=== PATIENT | female | born 1995 | race Caucasian/White ===

== ENCOUNTER 2019-02-24 00:07 | Emergency (ER) | payer OTHER ==
[~2019-02-24] VITALS: Ht 147.3 cm; Wt 54.5 kg
[2019-02-24] MEDS ORDERED: ALPR0.5T8 PO (00:18)
[2019-02-24] MEDS ORDERED: POVIDONE-IODINE 10% 15 ML SOLUTION UD TP ONE (04:15)
[2019-02-24] MEDS ORDERED: LIDOCAINE 1% 10 ML VIAL INJ ONE (04:15)
[2019-02-24] MEDS ORDERED: BACITRACIN 0.9 GM PACKET OINTMENT TP ONE (04:15)
[2019-02-24 05:30] VITALS: BP 129/95
[2019-02-24] MEDS ORDERED: PERTUSS(ACELL),DIPH,TET VAC/PF 0.5 ML VIAL IM ONE (05:30)
== END 2019-02-24 05:44 | disposition home or self-care (01) ==
LOC: EMS 00:11
DX: S61.411A Laceration without foreign body of right hand, initial encounter (principal); F41.9 Anxiety disorder, unspecified; F17.200 Nicotine dependence, unspecified, uncomplicated; W25.XXXA Contact with sharp glass, initial encounter; Y93.89 Activity, other specified; Y92.89 Other specified places as the place of occurrence of the external cause; Y99.8 Other external cause status
CPT/HCPCS: 12001; 90471; 90715; 99283; J3490

== ENCOUNTER 2025-02-23 11:44 | Inpatient (IN) | payer MEDICAID, OTHER ==
[~2025-02-23] VITALS: Ht 147.3 cm; Wt 42.9 kg
[~2025-02-23 11:44] MED LIST: ALPR-707 PO
[2025-02-23 12:00] VITALS: TEMP 98.2
[2025-02-23 12:15] LABS: COVID AG,FIA SOURCE NASAL SWAB
[2025-02-23 12:23] LABS: PLATELET COUNT (AUTO) 262 K/uL (150-450); RED BLOOD CELL COUNT(AUTO) 4.51 MIL/uL (4.00-5.20); RED CELL DISTRIBUTION WIDTH 15.2 % (11.5-14.5); WHITE BLOOD COUNT (AUTO) 5.6 K/uL (4.5-11.0)
[2025-02-23 12:33] LABS: CALCIUM, TOTAL 8.7 mg/dL (8.8-10.5); CREATININE 0.66 mg/dL (0.60-1.30); GLOMERULAR FILTR. RATE CALC > 60 mL/min (>60); GLUCOSE,RANDOM 76 mg/dL (70-110); SODIUM SERUM 141 mmol/L (136-145); UREA NITROGEN, BLOOD 10 mg/dL (7-18)
[2025-02-23 12:35] LABS: SARS-COV2 (COVID) ANTIGEN,FIA Negative (Negative)
[2025-02-23 15:55] VITALS: BP 94/63; PULSE 85; RESP 12; O2SAT 95
[2025-02-23] MEDS ORDERED: ZOLPIDEM TARTRATE 10 MG TABLET PO PRN (18:00)
[2025-02-24] MEDS ORDERED: ONDANSETRON 4 MG TABLET PO PRN (06:45)
[2025-02-24] MEDS ORDERED: BACITRACIN 28 GM OINTMENT TP PRN (06:45)
[2025-02-24] MEDS ORDERED: LOPERAMIDE HCL 2 MG CAPSULE PO PRN (06:45)
[2025-02-24] MEDS ORDERED: MAGNESIUM HYDROXIDE SUSPENSION 30 ML UDCUP PO PRN (06:45)
[2025-02-24] MEDS ORDERED: OMEPRAZOLE 20 MG CAPSULE PO PRN (06:45)
[2025-02-24] MEDS ORDERED: DOCUSATE SODIUM 100 MG CAPSULE PO PRN (06:45)
[2025-02-24] MEDS ORDERED: BENZOCAINE/MENTHOL [CEPACOL] LOZENGE PO PRN (06:45)
[2025-02-24] MEDS ORDERED: PETROLATUM,WHITE 28 GM JELLY TP PRN (06:45)
[2025-02-24] MEDS ORDERED: MAG HYDROX/ALUMINUM HYD/SIMETH ES 30 ML SUSPENSION UDCUP PO PRN (06:45)
[2025-02-24] MEDS ORDERED: ALBUTEROL SULFATE HFA 90 MCG/PUFF 8 GM INHALER IH PRN (06:45)
[2025-02-24] MEDS ORDERED: ACETAMINOPHEN 325 MG TABLET PO PRN (06:45)
[2025-02-24 07:53] LABS: PLATELET COUNT (AUTO) 260 K/uL (150-450); RED BLOOD CELL COUNT(AUTO) 4.37 MIL/uL (4.00-5.20); RED CELL DISTRIBUTION WIDTH 14.9 % (11.5-14.5); WHITE BLOOD COUNT (AUTO) 5.2 K/uL (4.5-11.0)
[2025-02-24 08:09] LABS: ASPARTATE AMINOTRANSFERASE 20 U/L (15-37); CALCIUM, TOTAL 8.7 mg/dL (8.8-10.5); CHOL/HDL RATIO 1.8 (3.9-5.7); CREATININE 0.70 mg/dL (0.60-1.30); GLOMERULAR FILTR. RATE CALC > 60 mL/min (>60); GLUCOSE,RANDOM 100 mg/dL (70-110); LDL CHOL (CALC.) 68 mg/dL (0-130); SODIUM SERUM 141 mmol/L (136-145); TOTAL PROTEIN, SERUM 7.1 g/dL (6.4-8.2); UREA NITROGEN, BLOOD 13 mg/dL (7-18)
[2025-02-24] MEDS: IBUPROFEN 600 MG TABLET PO PRN (09:09)
== END 2025-02-24 16:30 | disposition home or self-care (01) | DRG 754 ==
LOC: EMS 11:48 → 3EC 22:39
PROVIDERS: ADMIT Psychiatry & Neurology Psychiatry; ATTEND Psychiatry & Neurology Psychiatry
DX: F32.9 Major depressive disorder, single episode, unspecified (principal); R45.851 Suicidal ideations; F41.9 Anxiety disorder, unspecified; Z20.822 Contact with and (suspected) exposure to COVID-19; G47.00 Insomnia, unspecified; F17.200 Nicotine dependence, unspecified, uncomplicated; F10.10 Alcohol abuse, uncomplicated; Y90.9 Presence of alcohol in blood, level not specified; S93.401A Sprain of unspecified ligament of right ankle, initial encounter; X58.XXXA Exposure to other specified factors, initial encounter; Y99.8 Other external cause status; Y93.89 Activity, other specified; Y92.89 Other specified places as the place of occurrence of the external cause; Z71.6 Tobacco abuse counseling
CPT/HCPCS: 80048; 80053; 80061; 83036; 84436; 84439; 84703; 85025; 99285; G0480; G0481